=== PATIENT | male | born 1990 | race American Indian/Alaskan Native ===

== ENCOUNTER 2016-09-20 15:47 | Emergency (ER) | payer OTHER ==
[2016-09-20 15:47] VITALS: BMI 25.0
[2016-09-20 16:06] VITALS: BP 127/83; PULSE 75; RESP 15; TEMP 98.4; O2SAT 99
--- NOTE | 2016-09-20 17:07 | RAD ---
HISTORY: cough, chest burning COMPARISON: Chest x-ray performed 06/18/15 TECHNIQUE: Chest PA and lateral FINDINGS: LUNGS: No focal consolidation. Please note that chest x-ray has limited sensitivity for the detection of pulmonary masses. PLEURA: No significant pleural effusion identified. No definite pneumothorax . CARDIOVASCULAR: The cardiomediastinal silhouette appears within normal limits of size. OSSEOUS STRUCTURES: No acute osseous abnormality identified. VISUALIZED UPPER ABDOMEN: Unremarkable. OTHER FINDINGS: None. IMPRESSION: No focal consolidation, significant pleural effusion, or definite pneumothorax identified.
--- NOTE | 2016-09-20 17:36 | C.PDOC ---
History Of Present Illness The patient, a 26 y/o male, presents to the ED for evaluation of pain and burning to the left side of his chest which began around 1 week ago. Particularly after sneezing, patient notes the pain lingers for around 10 minutes then decreases in intensity. Patient describes his symptoms as a burning sensation and rates it as a 8/10 in severity. Patient also suspects presence of blood in the mucus after he sneezes. Otherwise, he denies fever, chills, night seats, cough, abdominal pain, nausea, vomiting. Time Seen by Provider: 09/20/16 16:26 Chief Complaint (Nursing): Cough, Cold, Congestion History Per: Patient History/Exam Limitations: no limitations Onset/Duration Of Symptoms: Other (1 week) Current Symptoms Are (Timing): Still Present Associated Symptoms: denies: Fever, Chills, Cough, Nausea, Vomiting Ear Symptoms: Bilateral: None Additional History Per: Patient Past Medical History Reviewed: Historical Data, Nursing Documentation, Vital Signs Vital Signs: Last Vital Signs Temp 98.4 F 09/20/16 16:05 Pulse 75 09/20/16 16:05 Resp 15 09/20/16 16:05 BP 127/83 09/20/16 16:05 Pulse Ox 99 09/20/16 23:24 - Medical History PMH: No Chronic Diseases Denies: Chronic Kidney Disease Comment Only: Seizures (Seizure 06/18/15) Surgical History: No Surg Hx Family History: States: Unknown Family Hx - Social History Hx Tobacco Use: Yes Hx Alcohol Use: Yes Hx Substance Use: Yes - Immunization History Hx Tetanus Toxoid Vaccination: No Hx Influenza Vaccination: No Hx Pneumococcal Vaccination: No Review Of Systems Except As Marked, All Systems Reviewed And Found Negative. Constitutional: Negative for: Fever, Chills Cardiovascular: Positive for: Other (+burning to left side of chest ) Respiratory: Positive for: Other (+blood in mucus after sneezing ). Negative for: Cough Gastrointestinal: Negative for: Nausea, Vomiting, Abdominal Pain Physical Exam - Physical Exam Appears: Non-toxic, No Acute Distress Skin: Normal Color, Warm, Dry Head: Atraumatic, Normacephalic Eye(s): bilateral: Normal Inspection, PERRL, EOMI Ear(s): Bilateral: Normal Nose: Normal, No Discharge Oral Mucosa: Moist Throat: Normal, No Erythema, No Exudate Neck: Supple Chest: Symmetrical, No Deformity, No Tenderness Cardiovascular: Rhythm Regular, No Murmur Respiratory: Normal Breath Sounds, No Rales, No Rhonchi, No Wheezing Back: Normal Inspection, No Vertebral Tenderness, No Paraspinal Tenderness Extremity: Normal ROM, Capillary Refill (less than 2 seconds ) Neurological/Psych: Oriented x3, Normal Speech, Normal Cognition Gait: Steady ED Course And Treatment O2 Sat by Pulse Oximetry: 99 (on RA) Pulse Ox Interpretation: Normal Progress Note: CXR ordered and reviewed. On reassessment, patient is resting comfortably, showing no signs of respiratory distress, and is stable for discharge. Pt advised to f/u with his PMD within 1-2 days for further evaluation. Disposition Counseled Patient/Family Regarding: Diagnosis, Need For Followup, Rx Given - Disposition Referrals: [facility] [Outside] Disposition: HOME/ ROUTINE Disposition Time: 17:34 Condition: STABLE Additional Instructions: Follow up with your doctor or the clinic. Take Motrin for pain and Claritin for allergies. Return to the ED with any further complaints. Prescriptions: Ibuprofen [Motrin] 1 tab PO TID PRN #30 tab PRN Reason: Pain Loratadine/Pseudoephedrine [Claritin-D 24 Hour Tablet] 1 each PO HS #10 tab.er.24h Instructions: Upper Respiratory Infection (ED) Forms: General Discharge Instructions - POA Present On Arrival: None - Clinical Impression Clinical Impression: Influenza-like illness - Scribe Statement The provider has reviewed the documentation as recorded by the Scribe (Fabi Baugh) Provider Attestation: All medical record entries made by the Scribe were at my direction and personally dictated by me. I have reviewed the chart and agree that the record accurately reflects my personal performance of the history, physical exam, medical decision making, and the department course for this patient. I have also personally directed, reviewed, and agree with the discharge instructions and disposition.
== END 2016-09-20 17:52 | disposition home or self-care (01) ==
LOC: C.ER 15:47
DX: J11.1 Influenza due to unidentified influenza virus with other respiratory manifestations (principal); Z72.0 Tobacco use

== ENCOUNTER 2016-12-06 12:10 | Emergency (ER) | payer OTHER ==
[2016-12-06 12:10] VITALS: BMI 25.0
[2016-12-06 12:48] VITALS: O2SAT 99
[2016-12-06 13:03] LABS: BASO % 0.5 % (0.0-2.0); EOS % 0.1 % (0.0-4.0); HEMOGLOBIN 15.2 g/dL (12.0-18.0); LYMPH # 2.1 K/uL (1.0-4.3); MEAN CORPUSCULAR HEMOGLOBIN 29.9 pg (27.0-31.0); MEAN CORPUSCULAR HGB CONC 31.9 g/dL (33.0-37.0); MEAN PLATELET VOLUME 6.9 fL (7.2-11.7); MONO # 0.8 K/uL (0.0-0.8); MONO % 8.3 % (0.0-10.0); NEUT # 6.1 K/uL (1.8-7.0); NEUT % 68.1 % (50.0-75.0); RBC 5.07 Mil/uL (4.40-5.90); RED CELL DISTRIBUTION WIDTH 13.9 % (11.5-14.5)
--- NOTE | 2016-12-06 13:12 | C.PDOC ---
History Of Present Illness Patient is a 26 y/o male presents to the emergency department for evaluation of left sided chest pain that developed at 12:00 today. Patient was seen here in the past for substance abuse and chest pain . Patient was also seen here on for chest discomfort. Otherwise, denies any shortness of breath, cough, or fever. Time Seen by Provider: 12/06/16 12:18 Chief Complaint (Nursing): Chest Pain History Per: Patient History/Exam Limitations: no limitations Onset/Duration Of Symptoms: Hrs Current Symptoms Are (Timing): Still Present Quality: "Pain" Associated Symptoms: denies: Nausea, Dyspnea, Diaphoresis, Syncope Modifying Factors: None Exacerbating Factors: None Alleviating Factors: None Recent travel outside of the [place]: No Additional History Per: Patient Past Medical History Reviewed: Historical Data, Nursing Documentation, Vital Signs Vital Signs: Last Vital Signs Temp 98.4 F 12/06/16 14:43 Pulse 82 12/06/16 14:43 Resp 16 12/06/16 14:43 BP 129/77 12/06/16 14:43 Pulse Ox 99 12/06/16 14:43 - Medical History PMH: Denies: Chronic Kidney Disease Comment Only: Seizures (Seizure 06/18/15) Other PMH: tachycardia Surgical History: No Surg Hx Family History: States: Unknown Family Hx - Social History Hx Tobacco Use: Yes Hx Alcohol Use: Yes Hx Substance Use: Yes - Immunization History Hx Tetanus Toxoid Vaccination: No Hx Influenza Vaccination: No Hx Pneumococcal Vaccination: No Review Of Systems Except As Marked, All Systems Reviewed And Found Negative. Constitutional: Negative for: Fever, Chills Cardiovascular: Positive for: Chest Pain. Negative for: Edema, Light Headedness Respiratory: Negative for: Cough, Shortness of Breath Gastrointestinal: Negative for: Nausea, Vomiting Neurological: Negative for: Dizziness Physical Exam - Physical Exam Appears: Non-toxic, No Acute Distress, Other (anxious, shaking) Skin: Normal Color, Warm, Dry Head: Atraumatic, Normacephalic Eye(s): bilateral: Normal Inspection, EOMI Oral Mucosa: Moist Neck: Normal ROM, Supple Chest: Symmetrical, No Tenderness Cardiovascular: Rhythm Regular, No Murmur Respiratory: Normal Breath Sounds, No Rales, No Rhonchi, No Wheezing Gastrointestinal/Abdominal: Soft, No Tenderness Extremity: Bilateral: Atraumatic, Normal ROM Neurological/Psych: Oriented x3, Normal Speech, Normal Cognition Gait: Steady ED Course And Treatment - Laboratory Results Result Diagrams: 12/06/16 12:58 12/06/16 12:58 Lab Interpretation: Normal ECG: Interpreted By Me ECG Rhythm: Sinus Rhythm ECG Interpretation: Normal Rate From EC O2 Sat by Pulse Oximetry: 99 (on RA) Pulse Ox Interpretation: Normal - Radiology CXR: Interpreted by Me CXR Interpretation: Yes: No Acute Disease Progress Note: Urinalysis, blood work, CXR ordered and reviewed. On reassessment , patient is resting comfortably in bed, no acute distress. Patient feels comfortable going home. Patient is being discharged home with instructions to follow up with PMD. 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 - Scribe Statement The provider has reviewed the documentation as recorded by the Scribyuko Baugh All medical record entries made by the Scribe were at my direction and personally dictated by me. I have reviewed the chart and agree that the record accurately reflects my personal performance of the history, physical exam, medical decision making, and the department course for this patient. I have also personally directed, reviewed, and agree with the discharge instructions and disposition.
[2016-12-06 13:15] LABS: ALBUMIN 4.6 g/dL (3.5-5.0); MEAN CELL VOLUME 93.8 fL (80.0-94.0)
[2016-12-06 13:18] LABS: ALB/GLOB RATIO 1.2 (1.0-2.1); ALT/SGPT 59 U/L (21-72); AST/SGOT 58 U/L (17-59); BLOOD UREA NITROGEN 12 mg/dL (9-20); GFR AFRICAN-AMERICAN > 60; GFR NON-AFRICAN AMERICAN 56
[2016-12-06 13:19] LABS: CALCIUM 9.6 mg/dl (8.6-10.4)
--- NOTE | 2016-12-06 13:48 | RAD ---
HISTORY: COMPARISON: 09/20/2016. TECHNIQUE: Chest PA and lateral FINDINGS: LINES AND TUBES: None. LUNG AND PLEURA: Lungs are clear. There are no pleural effusions or pneumothorax. HEART AND MEDIASTINUM: The heart is not enlarged. The hilar and mediastinal contours are within normal limits. SKELETAL STRUCTURES: The bony structures are within normal limits for the patient's age. VISUALIZED UPPER ABDOMEN: Normal. OTHER FINDINGS: None. IMPRESSION: No active pulmonary disease.
[2016-12-06 14:47] VITALS: BP 129/77; PULSE 82; RESP 16; TEMP 98.4
[2016-12-06 14:58] LABS: SQUAMOUS EPITHIAL 1 /hpf (0-5); URINE BILIRUBIN NEGATIVE (NEGATIVE); URINE BLOOD NEGATIVE (NEGATIVE); URINE CLARITY Clear (Clear); URINE COLOR Yellow (YELLOW); URINE GLUCOSE (UA) NORMAL (Normal); URINE LEUKOCYTE ESTERASE 2+ Leu/uL (Negative); URINE NITRATE NEGATIVE (NEGATIVE); URINE PROTEIN 1+ mg/dL (NEGATIVE); URINE UROBILINOGEN NORMAL mg/dL (0.2-1.0)
--- NOTE | 2016-12-08 14:27 | CARD ---
APPROVED REPORT EKG Measurement Heart [id number] CT 138P-1 [id number] <Conclusion> Normal sinus rhythm Normal ECG
== END 2016-12-06 14:51 | disposition home or self-care (01) ==
LOC: C.ER 12:10
DX: R07.89 Other chest pain (principal)

== ENCOUNTER 2017-02-08 15:58 | Emergency (ER) | payer OTHER ==
[2017-02-08 15:58] VITALS: BMI 25.0
[2017-02-08 16:08] VITALS: BP 113/70; PULSE 73; RESP 16; TEMP 98.3; O2SAT 97
--- NOTE | 2017-02-08 16:17 | C.PDOC ---
History Of Present Illness 26 year old male presents to the ED with complaints of left wrist pain status post fall two weeks ago. Patient noted original swelling decreased and thought pain would go away with time. He denies weakness, numbness, or other complaints at this time. Time Seen by Provider: 02/08/17 16:09 Chief Complaint (Nursing): Upper Extremity Problem/Injury History Per: Patient History/Exam Limitations: no limitations Onset/Duration Of Symptoms: Persistent (2 weeks ) Current Symptoms Are (Timing): Still Present Quality: "Pain" Exacerbating Factor(s): Movement Recent travel outside of the [place]: No Past Medical History Reviewed: Historical Data, Nursing Documentation, Vital Signs Vital Signs: Last Vital Signs Temp 98.3 F 02/08/17 16:05 Pulse 73 02/08/17 16:05 Resp 16 02/08/17 16:05 BP 113/70 02/08/17 16:05 Pulse Ox 97 02/08/17 16:19 - Medical History PMH: Atrial Fibrillation Comment Only: Seizures (Seizure 06/18/15) Family History: States: Unknown Family Hx - Social History Hx Tobacco Use: Yes Hx Alcohol Use: Yes Hx Substance Use: No - Immunization History Hx Tetanus Toxoid Vaccination: No Hx Influenza Vaccination: No Hx Pneumococcal Vaccination: No Review Of Systems Constitutional: Negative for: Fever, Chills Gastrointestinal: Negative for: Nausea, Vomiting Musculoskeletal: Positive for: Arm Pain (left wrist pain ) Neurological: Negative for: Weakness, Numbness Physical Exam - Physical Exam Appears: Non-toxic, No Acute Distress Skin: Warm, Dry, No Ecchymosis Head: Atraumatic, Normacephalic Eye(s): bilateral: Normal Inspection Chest: Symmetrical, No Deformity Cardiovascular: Rhythm Regular, No Murmur Extremity: No Normal ROM (decreased ROM, secondary to pain, of left wrist ), No Tenderness, No Calf Tenderness, Capillary Refill (good capillary refill, less than two seconds ), No Deformity, No Swelling Pulses: Left Radial: Normal, Right Radial: Normal Neurological/Psych: Oriented x3, Normal Motor, Normal Sensation ED Course And Treatment O2 Sat by Pulse Oximetry: 97 (room air ) - Other Rad Left wrist X-ray X-Ray: Viewed By Me, Read By Radiologist Progress Note: Left wrist X-ray was ordered and patient refused pain medication. Medical Decision Making Medical Decision Making: Impression: wrist injury Differential diagnosis includes but not limited to: fracture vs sprain Plan: * xray wrist, patient declined pain meds Progress: Xray interpreted and viewed by me showing no acute fracture. Radiology report reviewed and agreed no fracture. Velcro volar splint applied. Patient advised to rest wrist and to take analgesics as needed. Disposition Counseled Patient/Family Regarding: Studies Performed, Diagnosis, Need For Followup, Rx Given - Disposition Referrals: Zaid Gordon III, MD [Staff Provider] - Disposition: HOME/ ROUTINE Disposition Time: 16:40 Condition: GOOD Additional Instructions: Your xray was normal, no fracture. Please apply ice to area 15 minutes three times a day. Take Motrin as needed for pain every 6 hours, with food to not upset stomach. Follow up with orthopedic if pain persists over one week. 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 - Scribe Statement The provider has reviewed the documentation as recorded by the Scribe Lesley León All medical record entries made by the Scribe were at my direction and personally dictated by me. I have reviewed the chart and agree that the record accurately reflects my personal performance of the history, physical exam, medical decision making, and the department course for this patient. I have also personally directed, reviewed, and agree with the discharge instructions and disposition.
--- NOTE | 2017-02-08 16:45 | RAD ---
PROCEDURE: Left Wrist Radiographs. HISTORY: pain to left wrist for 2 weeks COMPARISON: None. FINDINGS: BONES: Normal. No fracture. JOINTS: Normal. No dislocation. SOFT TISSUES: Normal. OTHER FINDINGS: None. IMPRESSION: Normal left wrist radiographs.
== END 2017-02-08 16:45 | disposition home or self-care (01) ==
LOC: C.ER 15:58
DX: S66.912A Strain of unspecified muscle, fascia and tendon at wrist and hand level, left hand, initial encounter (principal); W18.30XA Fall on same level, unspecified, initial encounter

== ENCOUNTER 2017-02-23 11:51 | Emergency (ER) | payer OTHER ==
[2017-02-23 11:52] VITALS: BMI 25.0
[2017-02-23] MEDS ORDERED: Sodium Chloride 0.9% 1,000 ML IV ONE (13:05)
[2017-02-23] MEDS ORDERED: Iohexol 240 (50 ml) PO ONE (13:26)
[2017-02-23 13:27] LABS: BASO % 0.6 % (0.0-2.0); EOS # 0.2 K/uL (0.0-0.7); EOS % 2.4 % (0.0-4.0); HEMATOCRIT 42.8 % (35.0-51.0); LYMPH # 1.9 K/uL (1.0-4.3); LYMPH % 28.5 % (20.0-40.0); MEAN CELL VOLUME 92.1 fL (80.0-94.0); MEAN CORPUSCULAR HEMOGLOBIN 30.9 pg (27.0-31.0); MEAN CORPUSCULAR HGB CONC 33.5 g/dL (33.0-37.0); MEAN PLATELET VOLUME 7.6 fL (7.2-11.7); MONO # 0.7 K/uL (0.0-0.8); MONO % 9.8 % (0.0-10.0); RED CELL DISTRIBUTION WIDTH 13.8 % (11.5-14.5); WHITE BLOOD COUNT 6.8 K/uL (4.8-10.8)
[2017-02-23] MEDS ORDERED: Sodium Chloride 0.9% 1,000 ML ONE (13:33)
[2017-02-23] MEDS ORDERED: Iohexol 240 (50 ml) ONE (13:33)
[2017-02-23 13:34] LABS: RBC URINE 3 /hpf (0-3); URINE BILIRUBIN NEGATIVE (NEGATIVE); URINE BLOOD NEGATIVE (NEGATIVE); URINE COLOR Yellow (YELLOW); URINE GLUCOSE (UA) NORMAL (Normal); URINE KETONE NEGATIVE (NEGATIVE); URINE LEUKOCYTE ESTERASE NEG Leu/uL (Negative); URINE PROTEIN NEGATIVE (NEGATIVE); URINE UROBILINOGEN NORMAL mg/dL (0.2-1.0); WBC URINE 2 /hpf (0-5)
[2017-02-23 13:45] LABS: CHLORIDE 101 mmol/L (98-107); POTASSIUM 4.4 mmol/L (3.6-5.2); SODIUM 139 mmol/L (132-148)
[2017-02-23 13:47] LABS: AST/SGOT 46 U/L (17-59); BILIRUBIN,TOTAL 0.5 mg/dL (0.2-1.3); CARBON DIOXIDE 23 mmol/L (22-30); GFR AFRICAN-AMERICAN > 60
[2017-02-23 13:48] LABS: ALB/GLOB RATIO 1.2 (1.0-2.1); ALKALINE PHOSPHATASE 41 U/L (38-126); ALT/SGPT 69 U/L (21-72); BLOOD UREA NITROGEN 19 mg/dL (9-20); CALCIUM 9.8 mg/dl (8.6-10.4); GLUCOSE,RANDOM 88 mg/dL (75-110); TOTAL PROTEIN 8.1 g/dL (6.3-8.3)
--- NOTE | 2017-02-23 14:10 | C.PDOC ---
History Of Present Illness 26 y/o male presents to ED for evaluation of upper abdominal pain described as pressure for the last 3 days. Denies any associated n/v/d, constipation, changes in bowel habits, change in appetite, dysuria, hematuria, frequency, flank pain, fever, or chills. Chief Complaint (Nursing): Abdominal Pain History Per: Patient History/Exam Limitations: no limitations Onset/Duration Of Symptoms: Days (3) Current Symptoms Are (Timing): Still Present Radiation Of Pain To:: None Quality Of Discomfort: Pressure Associated Symptoms: denies: Nausea, Vomiting, Diarrhea, Loss Of Appetite, Back Pain, Chest Pain, Constipation, Urinary Symptoms Exacerbating Factors: Deep Breaths Alleviating Factors: None Recent travel outside of the [place]: No Additional History Per: Patient Past Medical History Reviewed: Historical Data, Nursing Documentation, Vital Signs Vital Signs: Last Vital Signs Temp 97.8 F 02/23/17 16:40 Pulse 65 02/23/17 16:40 Resp 18 02/23/17 16:40 BP 116/76 02/23/17 16:40 Pulse Ox 99 02/23/17 16:40 - Medical History PMH: Atrial Fibrillation Denies: Chronic Kidney Disease Comment Only: Seizures (Seizure 06/18/15) Family History: States: Unknown Family Hx - Social History Hx Tobacco Use: Yes Hx Alcohol Use: Yes Hx Substance Use: No - Immunization History Hx Tetanus Toxoid Vaccination: No Hx Influenza Vaccination: No Hx Pneumococcal Vaccination: No Review Of Systems Except As Marked, All Systems Reviewed And Found Negative. Constitutional: Negative for: Fever, Chills Cardiovascular: Negative for: Chest Pain, Palpitations Respiratory: Negative for: Cough, Shortness of Breath Gastrointestinal: Positive for: Abdominal Pain. Negative for: Nausea, Vomiting , Diarrhea, Constipation Genitourinary: Negative for: Dysuria, Frequency, Hematuria Musculoskeletal: Negative for: Back Pain Physical Exam - Physical Exam Appears: Non-toxic, No Acute Distress Skin: Normal Color, Warm, Dry Head: Atraumatic, Normacephalic Eye(s): bilateral: Normal Inspection, PERRL, EOMI Nose: Normal Oral Mucosa: Moist Neck: Supple Chest: Symmetrical Cardiovascular: Rhythm Regular, No Murmur Respiratory: Normal Breath Sounds, No Rales, No Rhonchi, No Wheezing Gastrointestinal/Abdominal: Soft, Tenderness (mild RLQ), No Guarding, No Rebound Back: No CVA Tenderness Extremity: Normal ROM Neurological/Psych: Oriented x3, Normal Speech, Normal Cognition ED Course And Treatment - Laboratory Results Result Diagrams: 02/23/17 13:12 02/23/17 13:12 O2 Sat by Pulse Oximetry: 98 (on RA) Pulse Ox Interpretation: Normal Progress Note: Blood work, UA, Abd & Pelvis CT ordered and reviewed. Patient was given Omnipaque, Pepcid, Zofran, and IV fluids. Disposition - Disposition Referrals: Caroline Duong, [Non-Staff] - Disposition: HOME/ ROUTINE Disposition Time: 16:00 Condition: IMPROVED Additional Instructions: Thank you for letting us take care of you today. Your provider was Dr. Becerra. You were treated for abdominal pain. The emergency medical care you received today was directed at your acute symptoms. If you were prescribed any medication, please fill it and take as directed. It may take several days for your symptoms to resolve. Return to the Emergency Department if your symptoms worsen, do not improve, or if you have any other problems. Please contact your doctor or call one of the physicians/clinics you have been referred to that are listed on the Patient Visit Information form that is included in your discharge packet. Bring any paperwork you were given at discharge with you along with any medications you are taking to your follow up visit. Our treatment cannot replace ongoing medical care by a primary care provider (PCP) outside of the emergency department. Thank you for allowing the [facility] team to be part of your care today. Stay hydrated for treatment of your constipation. Follow up with your doctor in 2-3 days. Instructions: Constipation (ED) Forms: [employer] (Albanian) - Clinical Impression Clinical Impression: Constipation - Scribe Statement The provider has reviewed the documentation as recorded by the Scribe Laury Baugh All medical record entries made by the Gracyibe were at my direction and personally dictated by me. I have reviewed the chart and agree that the record accurately reflects my personal performance of the history, physical exam, medical decision making, and the department course for this patient. I have also personally directed, reviewed, and agree with the discharge instructions and disposition.
[2017-02-23] MEDS ORDERED: Iodixanol 320 MG/ML 100 ML BOTTLE IV ONE (15:03)
[2017-02-23 16:41] VITALS: BP 116/76; PULSE 65; RESP 18; TEMP 97.8
--- NOTE | 2017-02-23 20:02 | CT ---
PROCEDURE: CT Abdomen and Pelvis with contrast HISTORY: RLQ tenderness COMPARISON: None. TECHNIQUE: Contrast dose: Radiation dose: Total exam DLP = mGy-cm. This CT exam was performed using one or more of the following dose reduction techniques: Automated exposure control, adjustment of the mA and/or kV according to patient size, and/or use of iterative reconstruction technique. FINDINGS: LOWER THORAX: Unremarkable. LIVER: Hepatic steatosis is appreciated. No discrete mass seen throughout the liver or gross intrahepatic biliary duct dilatation. GALLBLADDER AND BILE DUCTS: Gallbladder distention is seen with the gallbladder otherwise unremarkable appearing. PANCREAS: Unremarkable. No gross lesion or ductal dilatation. SPLEEN: Unremarkable. ADRENALS: Unremarkable. No mass. KIDNEYS AND URETERS: Unremarkable. No hydronephrosis. No solid mass. VASCULATURE: Unremarkable. No aortic aneurysm. BOWEL: Relatively prominent fecal loading seen throughout the colon may indicate an element of constipation. Clinically correlate further. No gross mural thickening is appreciated and opacified small bowel loops are unremarkable. The appendix is only partially seen inferomedial to the cecum. No definite CT pattern to suggest appendicitis at this time. Further clinical correlation is advised nevertheless. APPENDIX: As discussed in above section. PERITONEUM: Unremarkable. No free fluid. No free air. LYMPH NODES: Unremarkable. No enlarged lymph nodes. BLADDER: Unremarkable. REPRODUCTIVE: Unremarkable. BONES: No acute fracture. OTHER FINDINGS: None. IMPRESSION: Nonacute and pelvis CT as discussed above including portions of the appendix. Distal segments of the appendix are obscured by overlying small bowel and difficult to evaluate but no definite CT evidence of appendicitis appreciate this time. Further clinical correlation is advised. Remainder the examination is also unremarkable for acute pathology. Hepatic steatosis as per above.
[2017-02-24 00:29] VITALS: O2SAT 98
== END 2017-02-23 16:49 | disposition home or self-care (01) ==
LOC: C.ER 11:51
DX: K59.00 Constipation, unspecified (principal)
CPT/HCPCS: 74177; 80053; 81001; 83690; 85025; 96361; 96374; 96375; 99285; J2405; J7040; Q9966; Q9967

== ENCOUNTER 2017-06-08 03:42 | Emergency (ER) | payer SELFPAY ==
[2017-06-08 03:42] VITALS: BMI 25.0
[2017-06-08 03:51] VITALS: O2SAT 98
--- NOTE | 2017-06-08 04:27 | C.PDOC ---
History Of Present Illness 26 year old male presents to the ED c/o of cough, congestion and upper back pain for a coupe of days. Patient denies fever, chills, vomit, diarrhea, abdominal pain, other physical complaints. Time Seen by Provider: 06/08/17 03:52 Chief Complaint (Nursing): Cough, Cold, Congestion History Per: Patient History/Exam Limitations: no limitations Onset/Duration Of Symptoms: Days Current Symptoms Are (Timing): Still Present Location Of Pain: Other (back pain) Sick Contacts (Context): None Associated Symptoms: Cough, Nasal Congestion Ear Symptoms: Bilateral: None Recent travel outside of the [place]: No Additional History Per: Patient Past Medical History Reviewed: Historical Data, Nursing Documentation, Vital Signs Vital Signs: Last Vital Signs Temp 97.1 F L 06/08/17 05:25 Pulse 83 06/08/17 05:25 Resp 20 06/08/17 05:25 BP 129/70 06/08/17 05:25 Pulse Ox 98 06/08/17 05:25 - Medical History PMH: Atrial Fibrillation Denies: Chronic Kidney Disease Comment Only: Seizures (Seizure 06/18/15) Surgical History: No Surg Hx Family History: States: Unknown Family Hx - Social History Hx Tobacco Use: Yes Hx Alcohol Use: Yes Hx Substance Use: No - Immunization History Hx Tetanus Toxoid Vaccination: No Hx Influenza Vaccination: No Hx Pneumococcal Vaccination: No Review Of Systems Except As Marked, All Systems Reviewed And Found Negative. Respiratory: Positive for: Cough Musculoskeletal: Positive for: Back Pain Physical Exam - Physical Exam Appears: Non-toxic, No Acute Distress Skin: Normal Color, Warm, Dry Head: Atraumatic, Normacephalic Eye(s): bilateral: Normal Inspection Nose: No Discharge, No Deformity Oral Mucosa: Moist Neck: Normal ROM, Supple Chest: Symmetrical Cardiovascular: Rhythm Regular, No Murmur Respiratory: Normal Breath Sounds, No Rales, No Rhonchi, No Wheezing Gastrointestinal/Abdominal: Soft, No Tenderness, No Guarding, No Rebound Extremity: Normal ROM, No Pedal Edema, No Calf Tenderness, No Deformity, No Swelling Neurological/Psych: Oriented x3, Normal Speech, Normal Cognition Gait: Steady ED Course And Treatment O2 Sat by Pulse Oximetry: 98 (On RA) Pulse Ox Interpretation: Normal Medical Decision Making Medical Decision Making: Impression : cough, congestions, upper back pain Plan: * CXR * Tylenol 975 mg PO * Influenza A B * UA cxr neg as read by me. pt well appearing, flu neg. speakiing full sentences. Disposition - Disposition Referrals: [facility] [Outside] [facility] [Outside] Disposition: HOME/ ROUTINE Disposition Time: 05:00 Condition: STABLE Additional Instructions: follow up with your doctor. return to er with worsening symptoms or concerns Instructions: Viral Syndrome (ED), Back Pain (ED) Forms: [employer] (Sinhala) - Clinical Impression Clinical Impression: Viral disease, Back pain - Scribe Statement The provider has reviewed the documentation as recorded by the Scribe Oscar Strickland All medical record entries made by the Scribe were at my direction and personally dictated by me. I have reviewed the chart and agree that the record accurately reflects my personal performance of the history, physical exam, medical decision making, and the department course for this patient. I have also personally directed, reviewed, and agree with the discharge instructions and disposition.
[2017-06-08 04:28] LABS: URINE BILIRUBIN NEGATIVE (NEGATIVE); URINE BLOOD NEGATIVE (NEGATIVE); URINE CLARITY Clear (Clear); URINE COLOR Yellow (YELLOW); URINE GLUCOSE (UA) NORMAL (Normal); URINE LEUKOCYTE ESTERASE NEG Leu/uL (Negative); URINE NITRATE NEGATIVE (NEGATIVE); URINE PROTEIN NEGATIVE (NEGATIVE); URINE UROBILINOGEN NORMAL mg/dL (0.2-1.0)
[2017-06-08 05:27] VITALS: BP 129/70; PULSE 83; RESP 20; TEMP 97.1
--- NOTE | 2017-06-08 08:28 | RAD ---
HISTORY: cough COMPARISON: Chest radiographs 12/06/2016. TECHNIQUE: Chest PA and lateral FINDINGS: LUNGS: No active pulmonary disease. PLEURA: No significant pleural effusion identified. No pneumothorax apparent. CARDIOVASCULAR: Normal. OSSEOUS STRUCTURES: No significant abnormalities. VISUALIZED UPPER ABDOMEN: Normal. OTHER FINDINGS: None. IMPRESSION: No interval acute cardiopulmonary disease appreciated.
== END 2017-06-08 05:26 | disposition home or self-care (01) ==
LOC: C.ER 03:42
DX: B34.9 Viral infection, unspecified (principal); M54.9 Dorsalgia, unspecified

== ENCOUNTER 2018-04-17 19:15 | Emergency (ER) | payer MEDICAID ==
[2018-04-17 19:15] VITALS: BMI 25.0
[2018-04-17 19:51] VITALS: TEMP 98.3; O2SAT 98
[2018-04-17] MEDS ORDERED: Pantoprazole 80 MG in Sodium Chloride 0.9% 100 ML IV STA (19:56)
[2018-04-17] MEDS ORDERED: Sodium Chloride 0.9% 1,000 ML IV ONE (19:56)
--- NOTE | 2018-04-17 19:56 | C.PDOC ---
History Of Present Illness Patient presents to the ER with a complaint of abdominal pain associated with some nausea and black tarry stools for the last few days. Denies fever or chills. Patient also reports having a dull headache. Denies change in vision. Time Seen by Provider: 04/17/18 19:56 Chief Complaint (Nursing): Abdominal Pain History Per: Patient History/Exam Limitations: no limitations Onset/Duration Of Symptoms: Days Current Symptoms Are (Timing): Still Present Severity: Moderate Pain Scale Rating Of: 4 Radiation Of Pain To:: None Quality Of Discomfort: Unable To Describe Associated Symptoms: denies: Fever, Chills, Other (Change in vision) Exacerbating Factors: None Alleviating Factors: None Recent travel outside of the [place]: No Past Medical History Reviewed: Historical Data, Nursing Documentation, Vital Signs Vital Signs: Last Vital Signs Temp 98.3 F 04/17/18 19:45 Pulse 84 04/17/18 19:45 Resp 18 04/17/18 19:45 BP 145/69 04/17/18 19:45 Pulse Ox 98 04/17/18 19:45 - Medical History PMH: Atrial Fibrillation ("not really sure" 04/17/18) Denies: Chronic Kidney Disease Comment Only: Seizures (Seizure 06/18/15) Family History: States: No Known Family Hx - Social History Hx Tobacco Use: Yes Hx Alcohol Use: Yes Hx Substance Use: Yes - Immunization History Hx Tetanus Toxoid Vaccination: No Hx Influenza Vaccination: No Hx Pneumococcal Vaccination: No Review Of Systems Constitutional: Negative for: Fever, Chills Cardiovascular: Negative for: Chest Pain, Palpitations Respiratory: Negative for: Cough, Shortness of Breath Gastrointestinal: Positive for: Nausea, Abdominal Pain, Other (Black tarry stools) Neurological: Negative for: Weakness, Numbness Physical Exam - Physical Exam Appears: Non-toxic Skin: Warm, Dry Head: Normacephalic Eye(s): bilateral: Normal Inspection Oral Mucosa: Moist Neck: Trachea Midline, Supple Chest: Symmetrical, No Tenderness Cardiovascular: Rhythm Regular Respiratory: No Rales, No Rhonchi, No Wheezing Gastrointestinal/Abdominal: Soft, Tenderness (Mild mid epigastric), No Guarding, No Rebound Rectal: Normal Exam, Other (black stool, heme neg) Back: No CVA Tenderness Neurological/Psych: Oriented x3 ED Course And Treatment - Laboratory Results Result Diagrams: 04/17/18 20:53 04/17/18 20:53 O2 Sat by Pulse Oximetry: 98 (Room air) Pulse Ox Interpretation: Normal Progress Note: Blood work, urinalysis, and occult stool test ordered. Protonix and IV fluids administered. Upon further questioning, pt has been taking pepto bimol for a few days Reevaluation Time: 22:27 Reassessment Condition: Improved Disposition Counseled Patient/Family Regarding: Studies Performed, Diagnosis, Need For Followup - Disposition Referrals: Marco Darling MD [Staff Provider] - Disposition: HOME/ ROUTINE Disposition Time: 19:56 Condition: FAIR Additional Instructions: Please return if symptoms recur Instructions: Acute Abdomen (Belly Pain), Adult (DC) Forms: [employer] ([employer]) - Clinical Impression Clinical Impression: Abdominal pain - Scribe Statement The provider has reviewed the documentation as recorded by the Scribe Tavo Ochoa All medical record entries made by the Scribe were at my direction and personally dictated by me. I have reviewed the chart and agree that the record accurately reflects my personal performance of the history, physical exam, me dical decision making, and the department course for this patient. I have also personally directed, reviewed, and agree with the discharge instructions and disposition.
[2018-04-17 20:57] LABS: BASO % 0.4 % (0.0-2.0); EOS # 0.1 K/uL (0.0-0.7); EOS % 0.8 % (0.0-4.0); HEMOGLOBIN 14.6 g/dL (12.0-18.0); LYMPH # 2.4 K/uL (1.0-4.3); LYMPH % 29.5 % (20.0-40.0); MEAN CELL VOLUME 92.4 fL (80.0-94.0); MEAN CORPUSCULAR HEMOGLOBIN 30.4 pg (27.0-31.0); MEAN CORPUSCULAR HGB CONC 32.9 g/dL (33.0-37.0); MEAN PLATELET VOLUME 6.8 fL (7.2-11.7); MONO # 0.7 K/uL (0.0-0.8); NEUT # 4.8 K/uL (1.8-7.0); NEUT % 60.3 % (50.0-75.0); NRBC % 0.1 % (0.0-2.0); RBC 4.8 Mil/uL (4.40-5.90); RED CELL DISTRIBUTION WIDTH 13.8 % (11.5-14.5)
[2018-04-17 21:05] LABS: INR 1.1; PROTHROMBIN TIME 11.9 SECONDS (9.7-12.2)
[2018-04-17 21:14] LABS: ALB/GLOB RATIO 1.6 (1.0-2.1); ALBUMIN 5.1 g/dL (3.5-5.0); ALT/SGPT 48 U/L (21-72); AST/SGOT 46 U/L (17-59); BLOOD UREA NITROGEN 19 mg/dL (9-20); CALCIUM 9.8 mg/dl (8.6-10.4); GFR NON-AFRICAN AMERICAN > 60
[2018-04-17 22:36] VITALS: BP 161/67; PULSE 67; RESP 16
== END 2018-04-17 22:35 | disposition home or self-care (01) ==
LOC: C.ER 19:15
DX: R10.13 Epigastric pain (principal)
CPT/HCPCS: 80053; 85025; 85610; 85730; 86850; 86900; 96361; 96374; 99284; C9113; G0328; J7030

== ENCOUNTER 2018-07-11 16:25 | Emergency (ER) | payer MEDICAID ==
[2018-07-11 16:30] VITALS: BMI 27.3
[2018-07-11 16:33] VITALS: BP 124/72; PULSE 72; RESP 18; TEMP 98.6; O2SAT 98
--- NOTE | 2018-07-11 17:03 | C.PDOC ---
History Of Present Illness 28 year old male presents to ED with complaint of nausea and vomiting daily for 6 months. He also states that he has had difficulty swallowing for 1 month. Patient says he was instructed to follow up with ENT by PMD. He states that he missed this mornings appointment because he "slept late." He denies fever, sore throat, cough , runny nose, chest pain, SOB, and abdominal pain. Time Seen by Provider: 07/11/18 16:40 Chief Complaint (Nursing): ENT Problem History Per: Patient History/Exam Limitations: None Onset/Duration Of Symptoms: Other (6 months) Current Symptoms Are (Timing): Still Present Quality (Mouth/Throat): denies: Swelling, Redness Symptoms Have Been: Continuous Past Medical History Reviewed: Historical Data, Nursing Documentation, Vital Signs Vital Signs: Last Vital Signs Temp 98.6 F 07/11/18 16:30 Pulse 72 07/11/18 16:30 Resp 18 07/11/18 16:30 BP 124/72 07/11/18 16:30 Pulse Ox 98 07/11/18 16:30 - Medical History PMH: Atrial Fibrillation ("not really sure" 04/17/18), Seizures (Seizure 06/18/15) Denies: Chronic Kidney Disease Surgical History: No Surg Hx Family History: States: Unknown Family Hx - Social History Hx Tobacco Use: Yes Hx Alcohol Use: Yes Hx Substance Use: Yes (weed) - Immunization History Hx Tetanus Toxoid Vaccination: No Hx Influenza Vaccination: No Hx Pneumococcal Vaccination: No Review Of Systems Constitutional: Negative for: Fever, Chills, Weakness ENT: Positive for: Other (difficulty swallowing). Negative for: Nose Discharge, Throat Pain Cardiovascular: Negative for: Chest Pain Respiratory: Negative for: Cough Gastrointestinal: Positive for: Nausea, Vomiting. Negative for: Abdominal Pain Neurological: Negative for: Weakness, Numbness, Dizziness Physical Exam - Physical Exam Appears: Well, Non-toxic, No Acute Distress, Other (comfortable) Skin: Normal Color, Warm, Dry Head: Atraumatic, Normacephalic Throat: Normal, No Erythema, No Exudate, No Drooling, Other (unusual appearing uvula with webbing) Neck: Normal ROM, Supple, No Other (lymphadenopathy) Cardiovascular: Rhythm Regular, No Murmur Respiratory: No Accessory Muscle Use, No Rales, No Rhonchi, No Wheezing Extremity: Capillary Refill (<2 seconds) Extremity: Bilateral: Atraumatic, Normal Color And Temperature Pulses: Left Radial: Normal, Right Radial: Normal Neurological/Psych: Oriented x3, Normal Speech, Normal Cognition, Other (speaking full sentences) ED Course And Treatment O2 Sat by Pulse Oximetry: 98 (RA) Progress Note: Upon reassessment, patient is resting comfortably, in no distress, and is stable for discharge. Patient is advised to follow up with his ENT. Patient is advised to return to ED if symptoms persist or worsen. Disposition Counseled Patient/Family Regarding: Diagnosis, Need For Followup - Disposition Referrals: Meet Arechiga MD [Staff Provider] - Disposition: HOME/ ROUTINE Disposition Time: 17:00 Condition: STABLE Additional Instructions: FOLLOW UP WITH ENT WITHIN 1 WEEK RETURN TO ER IF SYMPTOMS WORSEN Instructions: Dysphagia (DC) Forms: [employer] ([place]) Print Language: PASHTO - Clinical Impression Clinical Impression: Dysphagia - Scribe Statement The provider has reviewed the documentation as recorded by the Scribe (Madelyn Bryant) All medical record entries made by the Scribe were at my direction and personally dictated by me. I have reviewed the chart and agree that the record accurately reflects my personal performance of the history, physical exam, medical decision making, and the department course for this patient. I have also personally directed, reviewed, and agree with the discharge instructions and disposition.
== END 2018-07-11 17:24 | disposition home or self-care (01) ==
LOC: C.ER 16:25
DX: R13.10 Dysphagia, unspecified (principal)

== ENCOUNTER 2018-08-10 01:38 | Emergency (ER) | payer MEDICAID, OTHER ==
[2018-08-10 01:39] VITALS: BMI 27.3
[2018-08-10 01:47] VITALS: BP 114/73; PULSE 58; RESP 16; TEMP 99; O2SAT 99
== END 2018-08-10 02:30 | disposition left against medical advice (07) ==
LOC: C.ER 01:38
DX: Z02.89 Encounter for other administrative examinations (principal); R20.0 Anesthesia of skin